=== PATIENT | female | born 1990 | race Caucasian/White ===

== ENCOUNTER 2017-11-28 19:38 | Emergency (ER) | payer SELFPAY ==
[~2017-11-28 19:38] MED LIST: CEPH500T7 PO; CIPR500S2 PO; ONDA4TAB PO; PROM-110 PO
--- NOTE | 2017-11-28 19:42 | ER Report ---
History and Physical Time Seen By MD: 19:42 HPI/ROS CHIEF COMPLAINT: Left upper molar dental abscess and infection. HISTORY OF PRESENT ILLNESS: Patient is a 27-year-old female here with complaints of left upper molar dental infection and surrounding facial swelling of the left face. Patient reports that she has had similar episodes in the past which drained purulent material. Patient reports experiencing chills, pain but has not been seen by a dentist for this. Patient denies dysphagia, odynophagia, blurred vision, headache. REVIEW OF SYSTEMS: Constitutional: No fever, + chills. Eyes: No discharge. ENT: No sore throat, + left upper gingiva swelling and tenderness on exam Cardiovascular: No chest pain, no palpitations. Respiratory: No cough, no shortness of breath. Gastrointestinal: No abdominal pain, no vomiting. Genitourinary: No hematuria. Musculoskeletal: No back pain. Skin: No rashes. Neurological: No headache. Allergies: Coded Allergies: Penicillins (Verified Allergy, Mild, 11/28/17) Home Meds Active Scripts Tramadol Hcl (TRAMADOL HCL) 50 Mg Tablet, 50 MG PO Q6H Y for PAIN, #12 TAB 0 Refills Prov:ELDER OSBORN DO 11/28/17 Clindamycin Hcl (CLINDAMYCIN HCL) 300 Mg Capsule, 300 MG PO Q6H for 10 Days, # 40 CAPSULE Prov:ELDER OSBORN DO 11/28/17 Discontinued Reported Medications Ciprofloxacin (Cipro) 500 Mg/5 Ml Aminta..rec, 500 MG PO BID, #10 0 Refills 01/06/11 [None] No Conflict Check, 0 Refills 01/06/11 Discontinued Scripts Promethazine Hcl (PROMETHAZINE HCL) 25 Mg Tablet, 25 MG PO Q8H, #12 TAB Prov:LYN HYLTON PA-C 11/20/16 Cephalexin 500 Mg Tab (KEFLEX 500 MG TAB) 500 Mg Tablet, 500 MG PO Q6H, #40 TAB Prov:LYN HYLTON PA-C 11/20/16 Ondansetron (ZOFRAN ODT) 4 Mg Tab.rapdis, 4 MG PO Q6H Y for NAUSEA/VOMITING, #8 TAB.FRENCH Prov:LYN HYLTON PA-C 11/20/16 Hx Smoking: Yes (1/3 PACK DAILY) Hx Substance Use Disorder: No Hx Alcohol Use: Yes (OCC) Constitutional Physical Exam General Appearance: The patient is alert, has no immediate need for airway protection and no signs of toxicity. No acute distress. Eyes: Pupils equal and round no pallor or injection. ENT, Mouth: + Edema and tenderness of the left upper molars and jaw with surrounding swelling of soft tissue Respiratory: There are no retractions, lungs are clear to auscultation. Cardiovascular: Regular rate and rhythm. [ ] Gastrointestinal: Abdomen is soft and non tender, no masses, bowel sounds normal. Neurological: No focal neurological deficits Skin: Warm and dry, no rashes. Musculoskeletal: Neck is supple non tender. Extremities are nontender, nonswollen and have full range of motion. DIFFERENTIAL DIAGNOSIS: After history and physical exam differential diagnosis was considered for cavity, dental abscess, infection, sialolithiasis Medical Decision Making ED Course/Re-evaluation ED Course Patient is a 27-year-old female here with complaints of left upper dental infection with surrounding soft tissue edema. The patient was noted to have prior history of dental abscess and has no access currently to the dentist. Patient received Toradol and a dose of clindamycin for analgesia and antimicrobial coverage. I performed a dental block of the alveolar nerve as well as local injection into the site of suspected abscess. Mild purulent material was expressed and evacuated from the site. Patient was given a prescription for antibiotics and told to follow up with dentistry for possible tooth extraction. She was well-appearing at time of discharge. Procedure Dental nerve block was performed using bupivacaine approximately 4 mL. Alveolar nerve was anesthetized and local injection was performed at the site of most pain. Hemostasis was achieved. Decision to Disposition Date: Nov 28, 2017 Decision to Disposition Time: 20:27 Depart Departure Latest Vital Signs Impression: Primary Impression: Dental abscess Condition: Improved Disposition: HOME OR SELF-CARE New Scripts Tramadol Hcl (TRAMADOL HCL) 50 Mg Tablet 50 MG PO Q6H Y for PAIN, #12 TAB 0 Refills Prov: ELDER OSBORN DO 11/28/17 Clindamycin Hcl (CLINDAMYCIN HCL) 300 Mg Capsule 300 MG PO Q6H for 10 Days, #40 CAPSULE Prov: ELDER OSBORN DO 11/28/17 Patient Instructions: Clindamycin (By mouth), Dental Abscess (ED), Tramadol ( By mouth) Additional Instructions: Please take one tablet of clindamycin 4 times a day for 10 days. Please follow up with dentistry to have that tooth worked on. You may take 1 tablet of tramadol every 6-8 hours as needed for pain control. Please return promptly with any worsening swelling, pain, difficulty swallowing, fevers or headache. ELDER OSBORN DO Nov 28, 2017 19:42
[2017-11-28 19:43] VITALS: BP 121/72
[2017-11-28] MEDS ORDERED: CLINDAMYCIN 150 MG CAP PO ONE (20:20)
[2017-11-28] MEDS ORDERED: KETOROLAC 60 MG/2 ML VIAL IM ONE (20:20)
[2017-11-28] MEDS ORDERED: TRAM-420 PO (20:29)
[2017-11-28] MEDS ORDERED: CLIN300C99 PO (20:29)
== END 2017-11-28 21:01 | disposition home or self-care (01) ==
LOC: ER 19:53
DX: K04.7 Periapical abscess without sinus (principal)
CPT/HCPCS: 96372; 99282; J1885

== ENCOUNTER 2018-01-19 18:49 | Emergency (ER) | payer SELFPAY ==
[~2018-01-19 18:49] MED LIST changes: +CLIN300C99 PO; +TRAM-420 PO
[2018-01-19 18:53] VITALS: BP 112/86
--- NOTE | 2018-01-19 19:06 | ER Report ---
History and Physical Time Seen By MD: 19:06 Hx. of Stated Complaint: dental abscess HPI/ROS CHIEF COMPLAINT: Tooth abscess HISTORY OF PRESENT ILLNESS: 27-year-old female patient presents to emergency room with complaint of a tooth abscess. Patient states that she has had problems with this for the past several days. Patient states she's been using clone of with no improvement she is also taking aspirin also if no improvement. Patient states that she is unable to see a dentist right now she does not have insurance, however she is planning on getting insurance in March. Patient denies having any fevers, however she states she has had chills. She is eating and drinking without any difficulties. She denies any nausea, vomiting or diarrhea. Allergies: Coded Allergies: Penicillins (Verified Allergy, Mild, 01/19/18) Home Meds Active Scripts Hydrocodone Bit/Acetaminophen (HYDROCODON-ACETAMINOPHEN 5-325) 1 Each Tablet, 1 EACH PO Q4-6H Y for PAIN, #8 TAB Prov:SADA SOLIS [facility] 01/19/18 Clindamycin Hcl (CLINDAMYCIN HCL) 300 Mg Capsule, 300 MG PO Q6H, #40 CAPSULE Prov:SADA SOLIS [facility] 01/19/18 Discontinued Scripts Tramadol Hcl (TRAMADOL HCL) 50 Mg Tablet, 50 MG PO Q6H Y for PAIN, #12 TAB 0 Refills Prov:OSBORNELDER Tez DO 11/28/17 Clindamycin Hcl (CLINDAMYCIN HCL) 300 Mg Capsule, 300 MG PO Q6H for 10 Days, # 40 CAPSULE Prov:OSBORNELDER Tez DO 11/28/17 Past Medical/Surgical History Patient has a past medical history of frequent UTI, fractures, gestational diabetes, Stalin alcohol use, ADHD. Patient has no pertinent surgical history. Reviewed Nurses Notes: Yes Hx Smoking: Yes (1/3 PACK DAILY) Hx Substance Use Disorder: No Hx Alcohol Use: Yes (OCC) Constitutional Vital Sign - Last 24 Hours 01/19/18 18:53 Temp 97.9 Pulse 59 Resp 16 B/P (MAP) 112/86 Pulse Ox 97 O2 Delivery Room Air Physical Exam General appearance: Alert no distress. Respiratory: Chest is non tender, lungs are clear to auscultation. Cardiac: Regular rate and rhythm. ENT: Tympanic membranes are pearly-siegel, auditory canals are patent, mucous membranes are moist. Patient does have poor dentition, tooth #29 was broken. There is swelling noted along the jaw line. Was tender to the touch. DIFFERENTIAL DIAGNOSIS: After history and physical exam differential diagnosis was considered for dental abscess, dental infection, toothache Medical Decision Making ED Course/Re-evaluation ED Course Patient was admitted to an exam room, history and physical were obtained. Differential diagnoses were considered. On examination patient does have some swelling along the jawline, tooth #29 is in poor repair. Patient did not have any enlarged cervical lymph nodes. The patient was requesting that I James and drain the abscess. I explained to her that since I'm unable to visualize the abscess I do not want to go cutting into her mouth. We will go ahead and place her on antibiotics and have her follow-up with a dentist. Patient states she is allergic to penicillin, as a result we'll go ahead and place her on clindamycin 300 mg one tab by mouth 4 times a day 10 days #40. We will also give patient a limited supply of pain medication. Patient verbalized understanding and agreement with plan. Decision to Disposition Date: Jan 19, 2018 Decision to Disposition Time: 19:13 Depart Departure Latest Vital Signs Vital Signs Date Time Temp Pulse Resp B/P (MAP) Pulse Ox O2 Delivery O2 Flow Rate FiO2 01/19/18 18:53 97.9 59 16 112/86 97 Room Air Impression: Primary Impression: Dental abscess Condition: Improved Disposition: HOME OR SELF-CARE New Scripts Hydrocodone Bit/Acetaminophen (HYDROCODON-ACETAMINOPHEN 5-325) 1 Each Tablet 1 EACH PO Q4-6H Y for PAIN, #8 TAB Prov: SADA SOLIS 01/19/18 Clindamycin Hcl (CLINDAMYCIN HCL) 300 Mg Capsule 300 MG PO Q6H, #40 CAPSULE Prov: SADA SOLIS 01/19/18 Patient Instructions: Dental Abscess (ED) Additional Instructions: You may take Ibuprofen in addition to the pain medication as needed for pain. Rinse mouth with warm salt water after every meal. Eat soft foods. Follow up with your dentist as soon as possible, call to make an appointment. Return to the ER if condition worsens. SADA SOLIS Jan 19, 2018 19:06
[2018-01-19] MEDS ORDERED: HYDR-385 PO (19:12)
[2018-01-19] MEDS ORDERED: CLIN300C99 PO (19:12)
== END 2018-01-19 19:40 | disposition home or self-care (01) ==
LOC: ER 19:21
DX: K04.7 Periapical abscess without sinus (principal)
CPT/HCPCS: 99281

== ENCOUNTER 2018-01-20 19:39 | Emergency (ER) | payer SELFPAY ==
[~2018-01-20 19:39] MED LIST changes: +HYDR-385 PO
--- NOTE | 2018-01-20 19:57 | ER Report ---
History and Physical Time Seen By MD: 19:57 Hx. of Stated Complaint: right sided mouth pain and swelling HPI/ROS CHIEF COMPLAINT: Swelling of right side of face HISTORY OF PRESENT ILLNESS: 27-year-old female patient presents to emergency room with complaint of swelling to the right side of the face. Patient states that she had worsening swelling of her face today. She states that she did take the antibiotics, but did not have any improvement. She still having a fair amount of pain. She states she's felt hot and chilled. She states she did not take her temperature. Patient states that she would like to have the abscess drained. Patient denies any nausea, vomiting or diarrhea. Patient states she is able to eat. Patient is concerned that she has so much swelling to her face. REVIEW OF SYSTEMS: Respiratory: No cough, no dyspnea. Cardiovascular: No chest pain, no palpitations. Gastrointestinal: No vomiting, no abdominal pain. Musculoskeletal: No back pain. Allergies: Coded Allergies: Penicillins (Verified Allergy, Mild, 01/20/18) Home Meds Active Scripts Hydrocodone Bit/Acetaminophen (HYDROCODON-ACETAMINOPHEN 5-325) 1 Each Tablet, 1 EACH PO Q4-6H PRN for PAIN, #8 TAB Prov:SADA SOLIS [facility] 01/19/18 Discontinued Scripts Clindamycin Hcl (CLINDAMYCIN HCL) 300 Mg Capsule, 300 MG PO Q6H, #40 CAPSULE Prov:SADA SOLIS [facility] 01/19/18 Tramadol Hcl (TRAMADOL HCL) 50 Mg Tablet, 50 MG PO Q6H PRN for PAIN, #12 TAB 0 Refills Prov:ELDER OSBORN DO 11/28/17 Clindamycin Hcl (CLINDAMYCIN HCL) 300 Mg Capsule, 300 MG PO Q6H for 10 Days, #40 CAPSULE Prov:ELDER OSBORN DO 11/28/17 Past Medical/Surgical History Patient has a past medical history of frequent UTI, fractures, gestational diabetes, occasional alcohol use, ADHD. Patient denies any surgical history. Reviewed Nurses Notes: Yes Hx Smoking: Yes (1/3 PACK DAILY) Hx Substance Use Disorder: No Hx Alcohol Use: Yes (OCC) Constitutional Vital Sign - Last 24 Hours 01/20/18 01/20/18 01/20/18 01/20/18 19:41 19:43 20:32 20:39 Temp 97.9 Pulse 82 80 Resp 12 B/P (MAP) 119/89 (99) 119/89 98/85 (89) Pulse Ox 96 93 O2 Delivery Room Air Room Air Physical Exam General Appearance: The patient is alert, has no immediate need for airway protection and no current signs of toxicity. ENT: Patient has no obvious abscess located in the mouth, there is no obvious purulent drainage from the tooth. Respiratory: Chest is non tender, lungs are clear to auscultation. Cardiac: regular rate and rhythm DIFFERENTIAL DIAGNOSIS: After history and physical exam differential diagnosis was considered for tooth abscess, dental infection, toothache. Medical Decision Making Data Points Result Diagram: 01/20/18201301/20/182013 Laboratory Hematology Test 01/20/18 20:14 Red Blood Count 5.06 M/uL (4.17-5.56) Mean Corpuscular Volume 82.2 fL (80.0-96.0) Mean Corpuscular Hemoglobin 27.8 pg (26.0-33.0) Mean Corpuscular Hemoglobin Concent 33.8 g/dL (32.0-36.0) Red Cell Distribution Width 14.7 % (11.5-14.5) Mean Platelet Volume 9.1 fL (7.2-11.1) Neutrophils (%) (Auto) 72.2 % (39.4-72.5) Lymphocytes (%) (Auto) 17.9 % (17.6-49.6) Monocytes (%) (Auto) 8.7 % (4.1-12.4) Eosinophils (%) (Auto) 0.7 % (0.4-6.7) Basophils (%) (Auto) 0.5 % (0.3-1.4) Nucleated RBC Relative Count (auto) 0.1 /100WBC Neutrophils # (Auto) 6.6 K/uL (2.0-7.4) Lymphocytes # (Auto) 1.6 K/uL (1.3-3.6) Monocytes # (Auto) 0.8 K/uL (0.3-1.0) Eosinophils # (Auto) 0.1 K/uL (0.0-0.5) Basophils # (Auto) 0.0 K/uL (0.0-0.1) Nucleated RBC Absolute Count (auto) 0.01 K/uL Sodium Level 135 mmol/L (137-145) Potassium Level 3.4 mmol/L (3.5-5.0) Chloride Level 97 mmol/L (98-107) Carbon Dioxide Level 26 mmol/L (22-31) Blood Urea Nitrogen 12 mg/dl (7-18) Creatinine 0.70 mg/dl (0.52-1.04) Glomerular Filtration Rate Calc > 60.0 Random Glucose 129 mg/dl (75-110) Calcium Level 9.0 mg/dl (8.4-10.2) Total Bilirubin 0.9 mg/dl (0.2-1.3) Aspartate Amino Transf (AST/SGOT) 18 U/L (0-35) Alanine Aminotransferase (ALT/SGPT) 13 U/L (0-56) Alkaline Phosphatase 40 U/L (0-126) Total Protein 7.8 g/dl (6.3-8.2) Albumin 4.3 g/dl (3.5-5.0) Chemistry Test 01/20/18 20:14 White Blood Count 9.2 k/uL (4.5-11.0) Red Blood Count 5.06 M/uL (4.17-5.56) Hemoglobin 14.1 g/dL (12.0-16.0) Hematocrit 41.6 % (34.0-47.0) Mean Corpuscular Volume 82.2 fL (80.0-96.0) Mean Corpuscular Hemoglobin 27.8 pg (26.0-33.0) Mean Corpuscular Hemoglobin Concent 33.8 g/dL (32.0-36.0) Red Cell Distribution Width 14.7 % (11.5-14.5) Platelet Count 275 K/uL (150-450) Mean Platelet Volume 9.1 fL (7.2-11.1) Neutrophils (%) (Auto) 72.2 % (39.4-72.5) Lymphocytes (%) (Auto) 17.9 % (17.6-49.6) Monocytes (%) (Auto) 8.7 % (4.1-12.4) Eosinophils (%) (Auto) 0.7 % (0.4-6.7) Basophils (%) (Auto) 0.5 % (0.3-1.4) Nucleated RBC Relative Count (auto) 0.1 /100WBC Neutrophils # (Auto) 6.6 K/uL (2.0-7.4) Lymphocytes # (Auto) 1.6 K/uL (1.3-3.6) Monocytes # (Auto) 0.8 K/uL (0.3-1.0) Eosinophils # (Auto) 0.1 K/uL (0.0-0.5) Basophils # (Auto) 0.0 K/uL (0.0-0.1) Nucleated RBC Absolute Count (auto) 0.01 K/uL Glomerular Filtration Rate Calc > 60.0 Calcium Level 9.0 mg/dl (8.4-10.2) Total Bilirubin 0.9 mg/dl (0.2-1.3) Aspartate Amino Transf (AST/SGOT) 18 U/L (0-35) Alanine Aminotransferase (ALT/SGPT) 13 U/L (0-56) Alkaline Phosphatase 40 U/L (0-126) Total Protein 7.8 g/dl (6.3-8.2) Albumin 4.3 g/dl (3.5-5.0) EKG/Imaging Imaging FACIAL BONES W CONTRAST Provided history: swelling and pain to the right lower jaw Additional pertinent history: none TECHNIQUE: Axial images were obtained from the superior aspect of the orbits through the inferior aspect of mandible with intravenous contrast Contrast dose: 75 mL Isovue-370. Sagittal and coronal reformatted images were obtained from the axial source data One of the following dose optimization techniques was utilized in the performance of this exam: Automated exposure control; adjustment of the mA and/or kV according to the patient's size; or use of an iterative reconstruction technique. Specific details can be referenced in the facility's radiology CT exam operational policy. COMPARISON STUDIES: No relevant priors FINDINGS: There is prominent infiltration of subcutaneous fat and skin thickening involving the right cheek and chin without a definable abscess. There is secondary thickening of the platysma muscle. There is no obvious dental source although there are multiple caries. The submandibular and parotid glands are normal. Oral cavity is normal. There are mildly prominent levels 1 and 2 lymph nodes, reactive in origin. There is complete consolidation of the left maxillary sinus with rim enhancing mucosa and contiguous involvement of the OMC. There is corresponding left frontoethmoidal inflammatory change. The right paranasal sinuses are without inflammatory change. There is moderate bilateral isaura bullosa middle turb inates. Mild rightward deviation nasal septum. Included upper neck extends to the mid thyroid level and is negative. Visualized brain is negative. Orbits are normal. IMPRESSION: 1. Extensive right cheek and chin cellulitis without a definable abscess. No dental or salivary gland source identified. Multiple caries are demonstrated. 2. Left OMC distribution paranasal sinus inflammatory disease. Report Dictated By: Vlad Jordan MD at 01/20/2018 8:52 PM Report E-Signed By: Vlad Jordan MD at 01/20/2018 9:04 PM ED Course/Re-evaluation ED Course Patient was admitted to exam room, history and physical were obtained. Differential diagnoses were considered. On examination patient has heavy amounts swelling to the right side of her jaw. She has tenderness. Lungs are clear, heart was regular. A IV was started, CBC, CMP were drawn. Patient had a normal white count, CMP was unremarkable. A CT scan of the facial bones were done. It did show that there was soft tissue swelling, but no definable abscess. I believe this is likely was causing her pain is more of a cellulitis as opposed to an abscess. We'll go ahead and treat her with 600 mg of clindamycin here in the emergency room and have her continue with her Keflex. Patient is to return to emergency room if condition worsens. I would like her to follow-up with a dentist as soon as possible for definitive care of her dental caries. Patient verbalized understanding and agreement with plan. Decision to Disposition Date: Jan 20, 2018 Decision to Disposition Time: 21:19 Depart Departure Latest Vital Signs Vital Signs Date Time Temp Pulse Resp B/P (MAP) Pulse Ox O2 Delivery O2 Flow Rate FiO2 01/20/18 20:39 80 93 Room Air 01/20/18 20:32 98/85 (89) 01/20/18 19:43 97.9 12 Impression: Primary Impression: Cellulitis Condition: Improved Disposition: HOME OR SELF-CARE Patient Instructions: Cellulitis (ED) Additional Instructions: Limit activity by pain. Continue with your antibiotics. Take the pain medication as prescribed. We did give you some antibiotics through your IV and that should help considerably, but you must continue with your antibiotic pills. Return to the ER if condition worsens. Follow up with your dentist as soon as you can. Problem Qualifiers Primary Impression: Cellulitis Site of cellulitis: face Qualified Codes: L03.211 - Cellulitis of face SADA SOLIS [employer]INE[employer] Jan 20, 2018 19:57
[2018-01-20] MEDS ORDERED: KETOROLAC 15 MG/ML VIAL IVP ONE (20:05)
[2018-01-20] MEDS ORDERED: CLINDAMYCIN 600 MG/4 ML 600 MG in NS(*) 0.9% 100 ML BAG 100 ML IVPB ONE (20:05)
[2018-01-20] MEDS ORDERED: IOPAMIDOL 76% 75 ML INFUS BTL 75 ML ONE (20:14)
[2018-01-20] MEDS ORDERED: CLINDAMYCIN(*) 600 MG/NS 50 ML 50 ML IVPB ONE (20:25)
[2018-01-20 20:38] LABS: PLATELET COUNT, AUTOMATED 275 K/uL (150-450)
--- NOTE | 2018-01-20 21:08 | RADIOLOGY IMAGING REPORT ---
FACILITY: [facility] - [place], [place] PATIENT NAME: Alexa Mortensen : 1990 MR: [id number] V: [id number] EXAM DATE: ORDERING PHYSICIAN: SADA SOLIS TECHNOLOGIST: Location: [facility] [place] Patient: Alexa Mortensen : 1990 Visit/Account:[id number] Date of Sevice: 01/20/2018 FACIAL BONES W CONTRAST Provided history: swelling and pain to the right lower jaw Additional pertinent history: none TECHNIQUE: Axial images were obtained from the superior aspect of the orbits through the inferior aspect of mandible with intravenous contrast Contrast dose: 75 mL Isovue-370. Sagittal and coronal reformatted images were obtained from the axial source data One of the following dose optimization techniques was utilized in the performance of this exam: Autom ated exposure control; adjustment of the mA and/or kV according to the patient's size; or use of an i terative reconstruction technique. Specific details can be referenced in the facility's radiology CT exam operational policy. COMPARISON STUDIES: No relevant priors FINDINGS: There is prominent infiltration of subcutaneous fat and skin thickening involving the right cheek an d chin without a definable abscess. There is secondary thickening of the platysma muscle. There is no obvious dental source although there are multiple caries. The submandibular and parotid glands are n ormal. Oral cavity is normal. There are mildly prominent levels 1 and 2 lymph nodes, reactive in orig in. There is complete consolidation of the left maxillary sinus with rim enhancing mucosa and contiguous involvement of the OMC. There is corresponding left frontoethmoidal inflammatory change. The right pa ranasal sinuses are without inflammatory change. There is moderate bilateral isaura bullosa middle tu rbinates. Mild rightward deviation nasal septum. Included upper neck extends to the mid thyroid level and is negative. Visualized brain is negative. Orbits are normal. IMPRESSION: 1. Extensive right cheek and chin cellulitis without a definable abscess. No dental or salivary gland source identified. Multiple caries are demonstrated. 2. Left OMC distribution paranasal sinus inflammatory disease. Report Dictated By: Vlad Jordan MD at 01/20/2018 8:52 PM Report E-Signed By: Vlad Jordan MD at 01/20/2018 9:04 PM WSN:[id number]
[2018-01-20 21:34] VITALS: BP 111/67
== END 2018-01-20 21:40 | disposition home or self-care (01) ==
LOC: ER 19:51
DX: L03.211 Cellulitis of face (principal); K02.9 Dental caries, unspecified
CPT/HCPCS: 85025; 96365; 96375; 99283; J1885; J3490; Q9967; 70487; 82040; 82247; 82310; 82374; 82435; 82565; 82947; 84075; 84132; 84155; 84295; 84450; 84460; 84520

== ENCOUNTER 2018-03-04 10:09 | Emergency (ER) | payer SELFPAY ==
[2018-03-04] MEDS ORDERED: NS(*) 0.9% 1000 ML BAG 1,000 ML IV ONE ×2 (10:30→11:35)
[2018-03-04] MEDS ORDERED: ONDANSETRON 4 MG/2 ML VIAL IVP ONE (10:30)
[2018-03-04] MEDS ORDERED: KETOROLAC 30 MG/ML VIAL IVP ONE (10:30)
--- NOTE | 2018-03-04 10:39 | ER Report ---
History and Physical Time Seen By MD: 10:36 Hx. of Stated Complaint: SICK SINCE SAT. FEVER 102 AT MIDNIGHT, SHAKEY, STOMACH PAINS/CRAMPS, NAUSEA HPI/ROS CHIEF COMPLAINT: Lower abdominal pain and pressure. HISTORY OF PRESENT ILLNESS: Patient is a 27-year-old female who presents to the emergency department with complaint of abdominal pain specifically suprapubic abdominal pain that started late Thursday has been colicky in nature. Patient also noticed some foul-smelling urine. She reports subjective fevers and chills. She has been self-medicating with both Tylenol and ibuprofen which does help with the temperature. Nausea with one episode of dry heaving. She states that her last menstrual period ended 4 days ago. Patient also states that she may have noticed some brown discharge along with bleeding with her period. Patient has no known ill contacts. REVIEW OF SYSTEMS: Constitutional: Subjective fevers and chills. Eyes: No redness, no discharge ENT: No sore throat. Cardiovascular: No chest pain, no palpitations. Respiratory: No cough, no shortness of breath. Gastrointestinal: Suprapubic abdominal pain, nausea, dry heaving no diarrhea Genitourinary: Dysuria Musculoskeletal: No back pain. Skin: No rashes. Neurological: No headache. Allergies: Coded Allergies: Penicillins (Verified Allergy, Mild, 03/04/18) Home Meds Discontinued Scripts Hydrocodone Bit/Acetaminophen (HYDROCODON-ACETAMINOPHEN 5-325) 1 Each Tablet, 1 EACH PO Q4-6H PRN for PAIN, #8 TAB Prov:SADA SOLIS [employer] D[employer]TER 01/19/18 Hx Smoking: Yes (1/3 PACK DAILY) Hx Substance Use Disorder: No Hx Alcohol Use: Yes (OCC) Constitutional Vital Sign - Last 24 Hours 03/04/18 03/04/18 03/04/18 03/04/18 10:09 10:13 10:15 10:24 Temp 98.5 Pulse ??? 89 ??? Resp 16 B/P (MAP) 131/70 131/70 (90) Pulse Ox 95 84 O2 Delivery Room Air 03/04/18 03/04/18 03/04/18 03/04/18 10:30 10:39 10:54 11:00 Pulse ??? 83 B/P (MAP) 121/65 (83) 111/70 (84) Pulse Ox 80 92 03/04/18 03/04/18 03/04/18 03/04/18 11:24 11:30 11:35 11:50 Pulse 78 ? B/P (MAP) 114/44 (67) Pulse Ox 98 03/04/18 03/04/18 03/04/18 03/04/18 12:00 12:05 12:10 12:25 Pulse ? B/P (MAP) 105/65 (78) 03/04/18 03/04/18 03/04/18 03/04/18 12:30 12:40 12:55 12:56 Pulse 72 84 B/P (MAP) 103/53 (70) 108/67 (81) Pulse Ox 99 98 Intake and Output 03/04/18 03/04/18 03/05/18 15:00 23:00 07:00 Intake Total 1950 ml Balance 1950 ml Physical Exam General Appearance: The patient is alert, has no immediate need for airway protection and no current signs of toxicity. Eyes: Pupils equal and round no injection. Respiratory: Chest is non tender, lungs are clear to auscultation. Cardiac: regular rate and rhythm Gastrointestinal: Suprapubic abdominal pain Musculoskeletal: Neck: Neck is supple and non tender. Extremities have full range of motion and are non tender. Skin: No rashes or lesions. Medical Decision Making Data Points Result Diagram: 03/04/18 1032 03/04/18 1032 Laboratory Hematology Test 03/04/18 10:12 03/04/18 10:32 Urine Color Yellow Urine Clarity Cloudy Urine pH 5.0 pH (4.8-9.5) Urine Specific Bovey 1.013 Urine Protein 100 mg/dL (NEGATIVE) Urine Glucose (UA) Negative mg/dL (NEGATIVE) Urine Ketones Negative mg/dL (NEGATIVE) Urine Blood Small (NEGATIVE) Urine Nitrite Positive (NEGATIVE) Urine Bilirubin Negative (NEGATIVE) Urine Urobilinogen Negative mg/dL (0.2-1.9) Urine Leukocyte Esterase Large (NEGATIVE) Urine RBC 8 /HPF (0-2/HPF) Urine WBC 839 /HPF (0-5/HPF) Urine WBC Clumps Few /HPF Urine Squamous Epithelial Cells Many /LPF (</=FEW) Urine Renal Epithelial Cells Many /LPF (NONE-FEW) Urine Bacteria Negative /HPF (NONE-FEW) Urine Mucus Few /HPF (NONE-FEW) Red Blood Count 4.64 M/uL (4.17-5.56) Mean Corpuscular Volume 84.5 fL (80.0-96.0) Mean Corpuscular Hemoglobin 28.0 pg (26.0-33.0) Mean Corpuscular Hemoglobin Concent 33.2 g/dL (32.0-36.0) Red Cell Distribution Width 14.3 % (11.5-14.5) Mean Platelet Volume 8.7 fL (7.2-11.1) Neutrophils (%) (Auto) 84.9 % (39.4-72.5) Lymphocytes (%) (Auto) 6.6 % (17.6-49.6) Monocytes (%) (Auto) 7.8 % (4.1-12.4) Eosinophils (%) (Auto) 0.4 % (0.4-6.7) Basophils (%) (Auto) 0.3 % (0.3-1.4) Nucleated RBC Relative Count (auto) 0.0 /100WBC Neutrophils # (Auto) 7.9 K/uL (2.0-7.4) Lymphocytes # (Auto) 0.6 K/uL (1.3-3.6) Monocytes # (Auto) 0.7 K/uL (0.3-1.0) Eosinophils # (Auto) 0.0 K/uL (0.0-0.5) Basophils # (Auto) 0.0 K/uL (0.0-0.1) Nucleated RBC Absolute Count (auto) 0.00 K/uL Sodium Level 137 mmol/L (137-145) Potassium Level 3.3 mmol/L (3.5-5.0) Chloride Level 98 mmol/L (98-107) Carbon Dioxide Level 26 mmol/L (22-31) Blood Urea Nitrogen 10 mg/dl (7-18) Creatinine 0.90 mg/dl (0.52-1.04) Glomerular Filtration Rate Calc > 60.0 Random Glucose 116 mg/dl (75-110) Calcium Level 8.6 mg/dl (8.4-10.2) Total Bilirubin 1.2 mg/dl (0.2-1.3) Aspartate Amino Transf (AST/SGOT) 16 U/L (0-35) Alanine Aminotransferase (ALT/SGPT) 16 U/L (0-56) Alkaline Phosphatase 54 U/L (0-126) Total Protein 7.7 g/dl (6.3-8.2) Albumin 4.0 g/dl (3.5-5.0) Lipase 26 U/L (23-300) Human Chorionic Gonadotropin, Qual Negative (NEGATIVE) Chemistry Test 03/04/18 10:12 03/04/18 10:32 Urine Color Yellow Urine Clarity Cloudy Urine pH 5.0 pH (4.8-9.5) Urine Specific Bovey 1.013 Urine Protein 100 mg/dL (NEGATIVE) Urine Glucose (UA) Negative mg/dL (NEGATIVE) Urine Ketones Negative mg/dL (NEGATIVE) Urine Blood Small (NEGATIVE) Urine Nitrite Positive (NEGATIVE) Urine Bilirubin Negative (NEGATIVE) Urine Urobilinogen Negative mg/dL (0.2-1.9) Urine Leukocyte Esterase Large (NEGATIVE) Urine RBC 8 /HPF (0-2/HPF) Urine WBC 839 /HPF (0-5/HPF) Urine WBC Clumps Few /HPF Urine Squamous Epithelial Cells Many /LPF (</=FEW) Urine Renal Epithelial Cells Many /LPF (NONE-FEW) Urine Bacteria Negative /HPF (NONE-FEW) Urine Mucus Few /HPF (NONE-FEW) White Blood Count 9.4 k/uL (4.5-11.0) Red Blood Count 4.64 M/uL (4.17-5.56) Hemoglobin 13.0 g/dL (12.0-16.0) Hematocrit 39.2 % (34.0-47.0) Mean Corpuscular Volume 84.5 fL (80.0-96.0) Mean Corpuscular Hemoglobin 28.0 pg (26.0-33.0) Mean Corpuscular Hemoglobin Concent 33.2 g/dL (32.0-36.0) Red Cell Distribution Width 14.3 % (11.5-14.5) Platelet Count 274 K/uL (150-450) Mean Platelet Volume 8.7 fL (7.2-11.1) Neutrophils (%) (Auto) 84.9 % (39.4-72.5) Lymphocytes (%) (Auto) 6.6 % (17.6-49.6) Monocytes (%) (Auto) 7.8 % (4.1-12.4) Eosinophils (%) (Auto) 0.4 % (0.4-6.7) Basophils (%) (Auto) 0.3 % (0.3-1.4) Nucleated RBC Relative Count (auto) 0.0 /100WBC Neutrophils # (Auto) 7.9 K/uL (2.0-7.4) Lymphocytes # (Auto) 0.6 K/uL (1.3-3.6) Monocytes # (Auto) 0.7 K/uL (0.3-1.0) Eosinophils # (Auto) 0.0 K/uL (0.0-0.5) Basophils # (Auto) 0.0 K/uL (0.0-0.1) Nucleated RBC Absolute Count (auto) 0.00 K/uL Glomerular Filtration Rate Calc > 60.0 Calcium Level 8.6 mg/dl (8.4-10.2) Total Bilirubin 1.2 mg/dl (0.2-1.3) Aspartate Amino Transf (AST/SGOT) 16 U/L (0-35) Alanine Aminotransferase (ALT/SGPT) 16 U/L (0-56) Alkaline Phosphatase 54 U/L (0-126) Total Protein 7.7 g/dl (6.3-8.2) Albumin 4.0 g/dl (3.5-5.0) Lipase 26 U/L (23-300) Human Chorionic Gonadotropin, Qual Negative (NEGATIVE) Urinalysis Test 03/04/18 10:12 Urine Color Yellow Urine Clarity Cloudy Urine pH 5.0 pH (4.8-9.5) Urine Specific Bovey 1.013 Urine Protein 100 mg/dL (NEGATIVE) Urine Glucose (UA) Negative mg/dL (NEGATIVE) Urine Ketones Negative mg/dL (NEGATIVE) Urine Blood Small (NEGATIVE) Urine Nitrite Positive (NEGATIVE) Urine Bilirubin Negative (NEGATIVE) Urine Urobilinogen Negative mg/dL (0.2-1.9) Urine Leukocyte Esterase Large (NEGATIVE) Urine RBC 8 /HPF (0-2/HPF) Urine WBC 839 /HPF (0-5/HPF) Urine WBC Clumps Few /HPF Urine Squamous Epithelial Cells Many /LPF (</=FEW) Urine Renal Epithelial Cells Many /LPF (NONE-FEW) Urine Bacteria Negative /HPF (NONE-FEW) Urine Mucus Few /HPF (NONE-FEW) ED Course/Re-evaluation ED Course 03/04/2018 10:39:11 am at this time will be to check urinalysis CBC CMP and lipase test. 03/04/2018 12:15:44 pm urinalysis positive for nitrites and leuk Estrace. Plan at this time will be to send for urine culture we will place the patient on outpatient antibiotics but we'll give a dose of IV Levaquin prior to discharge. Decision to Disposition Date: Mar 04, 2018 Decision to Disposition Time: 12:16 Depart Departure Latest Vital Signs Vital Signs Date Time Temp Pulse Resp B/P (MAP) Pulse Ox O2 Delivery O2 Flow Rate FiO2 03/04/18 12:56 108/67 (81) 03/04/18 12:55 84 98 03/04/18 10:13 98.5 16 Room Air Impression: Primary Impression: Urinary tract infection Condition: Improved Disposition: HOME OR SELF-CARE New Scripts No Active Prescriptions or Reported Meds Patient Instructions: Urinary Tract Infection in Women (ED) Additional Instructions: Take your antibiotics as prescribed until completed. Return to the emergency department if symptoms worsen at any time or do not improve within 48 hours of treatment Problem Qualifiers Primary Impression: Urinary tract infection Urinary tract infection type: acute cystitis Hematuria presence: without hematuria Qualified Codes: N30.00 - Acute cystitis without hematuria ANALIA RODRIGUEZ MD Mar 04, 2018 10:39
[2018-03-04 10:53] LABS: PLATELET COUNT, AUTOMATED 274 K/uL (150-450)
[2018-03-04] MEDS ORDERED: LEVOFLOXACIN/D5W 750 MG/150 ML 150 ML IVPB ONE (10:55)
[2018-03-04 12:56] VITALS: BP 108/67
== END 2018-03-04 13:00 | disposition home or self-care (01) ==
LOC: ER 10:12
DX: N30.00 Acute cystitis without hematuria (principal)
CPT/HCPCS: 81001; 83690; 84703; 85025; 87077; 87088; 87186; 96361; 96365; 96366; 96375; 99284; J1885; J1956; J2405; J7030; 82040; 82247; 82310; 82374; 82435; 82565; 82947; 84075; 84132; 84155; 84295; 84450; 84460; 84520

== ENCOUNTER 2018-11-01 13:19 | Emergency (ER) | payer SELFPAY ==
--- NOTE | 2018-11-01 13:21 | ER Report ---
History and Physical Time Seen By MD: 13:20 HPI/ROS Red and swollen area of right arm for 3-4 days. Recent tattoo. Also went "dumpster diving" recently to gather items the [employer] kids left behind. Has had 2 previous I&D's. One on face and one on back. No IVDA. No fever. Allergies: Coded Allergies: Penicillins (Verified Allergy, Mild, 03/04/18) Home Meds No Active Prescriptions or Reported Meds Reviewed Nurses Notes: Yes Old Medical Records Reviewed: Yes Hx Smoking: Yes (1/3 PACK DAILY) Hx Substance Use Disorder: No Hx Alcohol Use: Yes (OCC) Constitutional Vital Sign - Last 24 Hours 11/01/18 13:25 Temp 97.8 Pulse 86 Resp 20 B/P (MAP) 131/116 Pulse Ox 94 O2 Delivery Room Air Physical Exam General Appearance: The patient is alert, has no immediate need for airway protection and no current signs of toxicity. Eyes: Pupils equal and round no injection. Respiratory: Chest is non tender, lungs are clear to auscultation. Cardiac: regular rate and rhythm, no murmurs Skin: 3x3 cm fluctuant mass to proximal antecubital fossa region. There is surrounding erythema Medical Decision Making Data Points Result Diagram: 11/01/18 1405 11/01/18 1405 Laboratory Hematology Test 11/01/18 14:05 Red Blood Count 4.92 M/uL (4.17-5.56) Mean Corpuscular Volume 84.8 fL (80.0-96.0) Mean Corpuscular Hemoglobin 27.7 pg (26.0-33.0) Mean Corpuscular Hemoglobin Concent 32.7 g/dL (32.0-36.0) Red Cell Distribution Width 14.0 % (11.5-14.5) Mean Platelet Volume 8.7 fL (7.2-11.1) Neutrophils (%) (Auto) 79.8 % (39.4-72.5) Lymphocytes (%) (Auto) 10.7 % (17.6-49.6) Monocytes (%) (Auto) 7.9 % (4.1-12.4) Eosinophils (%) (Auto) 1.1 % (0.4-6.7) Basophils (%) (Auto) 0.5 % (0.3-1.4) Nucleated RBC Relative Count (auto) 0.0 /100WBC Neutrophils # (Auto) 8.4 K/uL (2.0-7.4) Lymphocytes # (Auto) 1.1 K/uL (1.3-3.6) Monocytes # (Auto) 0.8 K/uL (0.3-1.0) Eosinophils # (Auto) 0.1 K/uL (0.0-0.5) Basophils # (Auto) 0.1 K/uL (0.0-0.1) Nucleated RBC Absolute Count (auto) 0.00 K/uL Sodium Level 137 mmol/L (137-145) Potassium Level 3.9 mmol/L (3.5-5.0) Chloride Level 102 mmol/L (98-107) Carbon Dioxide Level 23 mmol/L (22-31) Blood Urea Nitrogen 13 mg/dl (7-18) Creatinine 0.70 mg/dl (0.52-1.04) Glomerular Filtration Rate Calc > 60.0 Random Glucose 99 mg/dl (75-110) Calcium Level 9.8 mg/dl (8.4-10.2) Total Bilirubin 0.6 mg/dl (0.2-1.3) Aspartate Amino Transf (AST/SGOT) 18 U/L (0-35) Alanine Aminotransferase (ALT/SGPT) 20 U/L (0-56) Alkaline Phosphatase 57 U/L (0-126) Total Protein 8.1 g/dl (6.3-8.2) Albumin 4.4 g/dl (3.5-5.0) Chemistry Test 11/01/18 14:05 White Blood Count 10.5 k/uL (4.5-11.0) Red Blood Count 4.92 M/uL (4.17-5.56) Hemoglobin 13.7 g/dL (12.0-16.0) Hematocrit 41.8 % (34.0-47.0) Mean Corpuscular Volume 84.8 fL (80.0-96.0) Mean Corpuscular Hemoglobin 27.7 pg (26.0-33.0) Mean Corpuscular Hemoglobin Concent 32.7 g/dL (32.0-36.0) Red Cell Distribution Width 14.0 % (11.5-14.5) Platelet Count 356 K/uL (150-450) Mean Platelet Volume 8.7 fL (7.2-11.1) Neutrophils (%) (Auto) 79.8 % (39.4-72.5) Lymphocytes (%) (Auto) 10.7 % (17.6-49.6) Monocytes (%) (Auto) 7.9 % (4.1-12.4) Eosinophils (%) (Auto) 1.1 % (0.4-6.7) Basophils (%) (Auto) 0.5 % (0.3-1.4) Nucleated RBC Relative Count (auto) 0.0 /100WBC Neutrophils # (Auto) 8.4 K/uL (2.0-7.4) Lymphocytes # (Auto) 1.1 K/uL (1.3-3.6) Monocytes # (Auto) 0.8 K/uL (0.3-1.0) Eosinophils # (Auto) 0.1 K/uL (0.0-0.5) Basophils # (Auto) 0.1 K/uL (0.0-0.1) Nucleated RBC Absolute Count (auto) 0.00 K/uL Glomerular Filtration Rate Calc > 60.0 Calcium Level 9.8 mg/dl (8.4-10.2) Total Bilirubin 0.6 mg/dl (0.2-1.3) Aspartate Amino Transf (AST/SGOT) 18 U/L (0-35) Alanine Aminotransferase (ALT/SGPT) 20 U/L (0-56) Alkaline Phosphatase 57 U/L (0-126) Total Protein 8.1 g/dl (6.3-8.2) Albumin 4.4 g/dl (3.5-5.0) ED Course/Re-evaluation ED Course Abscess was I and D by me. See procedure note. Patient was given 1 dose of IV vancomycin in the emergency department. Pain improved after procedure. The wound was packed and dressed, and the patient was placed in a sling for comfort. I will discharge her with prescription and's for Keflex and Bactrim as well as. She is going to follow up in the emergency department and tomorrow morning. Procedure Procedure: Abscess drainage. The patient's abscess was located on the right arm. I obtained verbal consent from the patient to drain the abscess who was informed about the possibility of bleeding and pain. The abscess was incised with a scalpel and a large amount of purulent drainage was expressed. I irrigated the wound and placed some packing. The patient tolerated the procedure well. The procedure was performed by myself. Decision to Disposition Date: Nov 01, 2018 Decision to Disposition Time: 15:38 Depart Departure Latest Vital Signs Vital Signs Date Time Temp Pulse Resp B/P (MAP) Pulse Ox O2 Delivery O2 Flow Rate FiO2 11/01/18 13:25 97.8 86 20 131/116 94 Room Air Impression: Primary Impression: Abscess of arm, right Condition: Improved Disposition: HOME OR SELF-CARE New Scripts Sulfamethoxazole/Trimet 800-160 Mg Tab (BACTRIM DS TABLET) 1 Each Tablet 1 TAB PO Q12H for 10 Days, #20 TAB Prov: DESIRE JOHN MD 11/01/18 Cephalexin Monohydrate (CEPHALEXIN) 500 Mg Cap 500 MG PO BID for 10 Days, #20 CAP 0 Refills Prov: DESIRE JOHN MD 11/01/18 Patient Instructions: Abscess Incision and Drainage (GEN) Additional Instructions: Return to the ER tomorrow morning for a wound check DESIRE JOHN MD Nov 01, 2018 13:20
[2018-11-01] MEDS ORDERED: NS(*) 0.9% 1000 ML BAG 1,000 ML IV ONE (14:00)
[2018-11-01] MEDS ORDERED: VANCOMYCIN 1 GM ADDVIAL 1 GM in NS(*) 0.9% 250 ML ADDVAN BAG 250 ML IVPB ONE (14:00)
[2018-11-01 14:16] LABS: PLATELET COUNT, AUTOMATED 356 K/uL (150-450)
[2018-11-01] MEDS ORDERED: VANCOMYCIN(*) 1 GM VIAL 2 GM in NS(*) 0.9% 500 ML BAG 500 ML IVPB ONE (14:45)
[2018-11-01] MEDS ORDERED: KETOROLAC 30 MG/ML VIAL IVP ONE (15:15)
[2018-11-01] MEDS ORDERED: CEPH500C24 PO (15:40)
[2018-11-01] MEDS ORDERED: SULF-198 PO (15:40)
[2018-11-01 16:30] VITALS: BP 118/67
[2018-11-01] MEDS ORDERED: diphenhydrAMINE 25 MG CAP PO ONE (16:55)
== END 2018-11-01 17:02 | disposition home or self-care (01) ==
LOC: ER 13:22
DX: L02.413 Cutaneous abscess of right upper limb (principal)
CPT/HCPCS: 10060; 85025; 96365; 96375; 99283; A4565; J1885; J3370; J7040; Q0163; 82040; 82247; 82310; 82374; 82435; 82565; 82947; 84075; 84132; 84155; 84295; 84450; 84460; 84520

== ENCOUNTER 2018-11-02 10:05 | Emergency (ER) | payer SELFPAY ==
[~2018-11-02 10:05] MED LIST changes: +CEPH500C24 PO; +SULF-198 PO
--- NOTE | 2018-11-02 10:14 | ER Report ---
History and Physical Time Seen By MD: 10:14 HPI/ROS Seen yesterday for an arm abscess. I&D performed by me. Pt. given one dose of Vancomycin. Here today for follow up and removal of packing. Pt denies fever/chills. States pain is significantly improved. Remainder of the 14 system rev: Yes Allergies: Coded Allergies: Penicillins (Verified Allergy, Mild, 11/02/18) Home Meds Active Scripts Sulfamethoxazole/Trimet 800-160 Mg Tab (BACTRIM DS TABLET) 1 Each Tablet, 1 TAB PO Q12H for 10 Days, #20 TAB Prov:DESIRE JOHN MD 11/01/18 Cephalexin Monohydrate (CEPHALEXIN) 500 Mg Cap, 500 MG PO BID for 10 Days, #20 CAP 0 Refills Prov:DESIRE JOHN MD 11/01/18 Reviewed Nurses Notes: Yes Old Medical Records Reviewed: Yes Hx Smoking: Yes (1/3 PACK DAILY) Hx Substance Use Disorder: No Hx Alcohol Use: Yes (OCC) Constitutional Vital Sign - Last 24 Hours 11/02/18 11/02/18 11/02/18 11/02/18 10:05 10:16 10:17 10:30 Temp 97.4 Pulse ??? 69 Resp 16 B/P (MAP) 107/76 107/76 (86) 104/68 (80) Pulse Ox 95 O2 Delivery Room Air 11/02/18 11/02/18 11/02/18 11/02/18 10:35 11:00 11:05 11:30 Pulse 70 71 B/P (MAP) 108/70 (83) ???/??? (1665) Pulse Ox 93 94 11/02/18 11:35 Pulse 71 Pulse Ox 89 Physical Exam General Appearance: The patient is alert, has no immediate need for airway protection and no current signs of toxicity. Extremities have full range of motion Skin: Right arm: packing in place, and abscess still draining around packing. No erythema surrounding the incision site. Medical Decision Making ED Course/Re-evaluation ED Course Abscess still draining, so packing removed and then replaced. The pt. has not yet picked up her abx, and plans to do it later today, b/c she just got paid. She was given one dose each of Bactrim/Keflex in the ED. Wound was re-dressed. Pt. will follow up in the ED tomorrow. Decision to Disposition Date: Nov 02, 2018 Decision to Disposition Time: 11:57 Depart Departure Latest Vital Signs Vital Signs Date Time Temp Pulse Resp B/P (MAP) Pulse Ox O2 Delivery O2 Flow Rate FiO2 11/02/18 11:35 71 89 11/02/18 11:30 ???/??? (1665) 11/02/18 10:16 97.4 16 Room Air Impression: Primary Impression: Wound check, abscess Condition: Improved Disposition: HOME OR SELF-CARE Patient Instructions: Abscess Follow-up (ED) Additional Instructions: Continue your antibiotics as directed. Take Ibuprofen for pain. DESIRE JOHN MD Nov 02, 2018 10:14
[2018-11-02] MEDS ORDERED: CEPHALEXIN MONO 500 MG CAP PO ONE (11:20)
[2018-11-02] MEDS ORDERED: TRIMETH/SULFA DS 160-800MG TAB PO ONE (11:20)
[2018-11-02] MEDS ORDERED: MUPIROCIN 2% OINT 22 GM TUBE TP ONE (11:20)
== END 2018-11-02 12:00 | disposition home or self-care (01) ==
LOC: ER 10:21
DX: Z48.00 Encounter for change or removal of nonsurgical wound dressing (principal)
CPT/HCPCS: 99283

== ENCOUNTER 2018-11-03 11:04 | Emergency (ER) | payer SELFPAY ==
[2018-11-03 11:07] VITALS: BP 115/81
--- NOTE | 2018-11-03 11:28 | ER Report ---
History and Physical Time Seen By MD: 11:14 Hx. of Stated Complaint: patient is here for wound check and packing removal HPI/ROS CHIEF COMPLAINT: Wound recheck HISTORY OF PRESENT ILLNESS: 27-year-old female patient presents to emergency room to have a wound recheck. Patient was seen here 2 days ago with an abscess which was opened and drained. Patient has been following up and has had significant drainage for the last couple of days. She states she's feeling significantly better. She denies any fevers or chills. She states that she has been taking the medication as prescribed. She requests that the packing not be replaced into the wound as that has been uncomfortable for her. Allergies: Coded Allergies: Penicillins (Verified Allergy, Mild, 11/02/18) Home Meds Active Scripts Sulfamethoxazole/Trimet 800-160 Mg Tab (BACTRIM DS TABLET) 1 Each Tablet, 1 TAB PO Q12H for 10 Days, #20 TAB Prov:DESIRE JOHN MD 11/01/18 Cephalexin Monohydrate (CEPHALEXIN) 500 Mg Cap, 500 MG PO BID for 10 Days, #20 CAP 0 Refills Prov:DESIRE JOHN MD 11/01/18 Past Medical/Surgical History Patient has a past medical history frequent UTI, fractures, gestational diabetes, hypothyroidism, alcohol use, ADHD. Patient has no pertinent surgical history. Reviewed Nurses Notes: Yes Hx Smoking: Yes (1/3 PACK DAILY) Hx Substance Use Disorder: No Hx Alcohol Use: Yes (OCC) Constitutional Vital Sign - Last 24 Hours 11/03/18 11:07 Temp 97.7 Pulse 73 Resp 20 B/P (MAP) 115/81 Pulse Ox 95 O2 Delivery Room Air Physical Exam General appearance: Alert no distress. Respiratory: Chest is non tender, lungs are clear to auscultation. Cardiac: Regular rate and rhythm. Skin: Patient has wound that has significant drainage after removing the packing. I'm able to express out some more drainage. The drainage looks far less purulent. Patient had slight tenderness to palpation to the medial aspect of the right elbow. DIFFERENTIAL DIAGNOSIS: After history and physical exam differential diagnosis was considered for abscess. Medical Decision Making ED Course/Re-evaluation ED Course Patient was admitted and examined, history and physical were obtained. Differential diagnoses were considered. On examination lungs are clear, heart is regular. Patient does have a wound to the anterior aspect of the right elbow. Packing was removed and patient did have a fair amount of purulent drainage. After the packing was removed I did express out some more drainage. It does seem to be far less purulent. With patient not wanting to have more packing placed we will go ahead and cover with a Band-Aid. I will like to change that twice a day for the next week. I would like her to continue to milk out the drainage. She is return to emergency room if she has worsening pain. I would like her to continue with her antibiotics. Patient verbalized understanding and agreement plan. Decision to Disposition Date: Nov 03, 2018 Decision to Disposition Time: 11:28 Depart Departure Latest Vital Signs Vital Signs Date Time Temp Pulse Resp B/P (MAP) Pulse Ox O2 Delivery O2 Flow Rate FiO2 11/03/18 11:07 97.7 73 20 115/81 95 Room Air Impression: Primary Impression: Abscess of arm, right Additional Impression: Wound check, abscess Condition: Improved Disposition: HOME OR SELF-CARE Patient Instructions: Abscess Follow-up (ED) Additional Instructions: We will leave the packing out. Continue to milk the wound. Change the dressing twice a day. I want you to try and keep the wound open for the next 2 days, after that it should stay open. Return to the ER if your pain worsens. Continue with the antibiotics. Problem Qualifiers SADA SOLIS Nov 03, 2018 11:28
== END 2018-11-03 11:34 | disposition home or self-care (01) ==
LOC: ER 11:07
DX: Z48.00 Encounter for change or removal of nonsurgical wound dressing (principal)
CPT/HCPCS: 99282